=== PATIENT | female | born 1965 | race Caucasian/White ===

== ENCOUNTER → 2020-03-25 | Outpatient (CLI) | payer SELFPAY | LOC: RAD 15:49 | DX: M25.831 Other specified joint disorders, right wrist (principal) ==

== ENCOUNTER → 2020-04-13 | Outpatient (CLI) | payer OTHER | LOC: RAD 07:00 | DX: S60.211A Contusion of right wrist, initial encounter (principal) ==

== ENCOUNTER 2021-09-06 07:55 | Outpatient (RCR) | payer OTHER | END 2021-09-30 23:59 | disposition home or self-care (01) | LOC: OT 07:55 | DX: Z48.89 Encounter for other specified surgical aftercare (principal) ==

== ENCOUNTER 2021-10-04 07:56 | Outpatient (RCR) | payer OTHER | END 2021-10-31 | disposition home or self-care (01) | LOC: OT | DX: M93.931 Osteochondropathy, unspecified, right forearm (principal) ==

== ENCOUNTER 2021-11-01 15:30 | Outpatient (RCR) | payer OTHER | END 2021-11-28 | disposition home or self-care (01) | LOC: OT | DX: M93.831 Other specified osteochondropathies, right forearm (principal) ==

== ENCOUNTER → 2022-08-09 | Outpatient (CLI) | payer OTHER | LOC: RAD 09:00 | DX: M19.031 Primary osteoarthritis, right wrist (principal); Z98.1 Arthrodesis status ==

== ENCOUNTER → 2022-12-25 | Day surgery (SDC) | payer BC | END | disposition home or self-care (01) | LOC: MSO 12:23 | DX: L72.0 Epidermal cyst (principal); Z86.16 Personal history of COVID-19 ==